=== PATIENT | female | born 1965 | race Caucasian/White ===

== ENCOUNTER → 2017-04-29 | Outpatient (CLI) | payer OTHER ==
--- NOTE | 2017-04-30 13:10 | MM ---
Reason for exam: screening (asymptomatic). Last mammogram was performed 1 year and 11 months ago. History: Patient is postmenopausal. Took hormonal contraceptives for 2 months. Physical Findings: A clinical breast exam by your physician is recommended on an annual basis and results should be correlated with mammographic findings. MG Screening Mammo w CAD Bilateral CC and MLO view(s) were taken. Prior study comparison: May 23, 2015, bilateral MG screening mammo w CAD. February 08, 2014, bilateral MG screening mammo w CAD. There are scattered fibroglandular densities. No suspicious abnormality. No significant changes when compared with prior studies. ASSESSMENT: Negative, BI-RAD 1 RECOMMENDATION: Routine screening mammogram of both breasts in 1 year.
== END | disposition home or self-care (01) ==
LOC: RADMAMWWP 10:20
PROVIDERS: ATTEND Family Medicine
DX: Z12.31 Encounter for screening mammogram for malignant neoplasm of breast (principal)

== ENCOUNTER → 2017-11-25 | Outpatient (CLI) | payer OTHER ==
--- NOTE | 2017-11-25 14:25 | XR ---
Lumbosacral spine HISTORY: Chronic low back pain 5 views of the lumbosacral spine correlated to prior exam 10/18/2013 There is no significant interval change. Some sclerosis present at the sacroiliac joint on the right. There is no spondylolysis or spondylolisthesis. Lumbar vertebral bodies show preserved height, stabl e bone mineralization. Loss of disc height is present at L5-S1, there is multilevel spondylosis. Scle rosis present posterior elements of the lower lumbar spine. Vascular calcifications noted in the aort oiliac region. IMPRESSION: Degenerative disc disease and facet arthropathy.
== END | disposition home or self-care (01) ==
LOC: RADXRYALE 11:17
PROVIDERS: ATTEND Physician Assistant Medical
DX: M51.37 Other intervertebral disc degeneration, lumbosacral region (principal); M46.97 Unspecified inflammatory spondylopathy, lumbosacral region
CPT/HCPCS: 72110

== ENCOUNTER → 2018-11-17 | Outpatient (CLI) | payer BC ==
[2018-11-17 10:53] VITALS: BP 115/66; PULSE 89; RESP 16; TEMP 97; BMI 35.8
--- NOTE | 2018-11-17 11:45 | P.HPOB ---
History of Present Illness H&P Date: 11/17/18 Chief Complaint: The patient is here for her routine gynecologic exam and ma mmogram. This is a 53-year-old with an LMP of 2004. The patient has been experiencing some vulvar pruritus for about one year. She saw resource management specialist about 1 month ago for a skin lesion on her back. The lesion on her back was biopsied. She was given a prescription for clobetasol ointment which she uses twice daily on the back and vulvar area. She is not sure what the biopsy showed up, but it was not cancerous. She states the ointment does seem to help somewhat, but the itching always seems to come back. She is otherwise without complaints and denies any postmenopausal bleeding. Review of Systems The patient has gained 5 pounds over the last year. She denies respiratory, cardiac, or G.I. problems. Past Medical History Past Medical History: Diabetes Mellitus, Hyperlipidemia, Hypertension Additional Past Medical History / Comment(s): Type II diabetes. 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 History of Any Multi-Drug Resistant Organisms: None Reported Past Surgical History: Tubal Ligation Additional Past Surgical History / Comment(s): SINUS SURGERY. VTPx3. Colonoscopy 2016(2nd,next 10yrs). Past Anesthesia/Blood Transfusion Reactions: Postoperative Nausea & Vomiting (PO NV) Past Psychological History: Depression Smoking Status: Former smoker (Quit 2005) Past Alcohol Use History: Rare Additional Past Alcohol Use History / Comment(s): QUIT SMOKING IN 2005, SMOKED FOR 23 YRS. 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 - Past Family History Mother Family Medical History: Diabetes Mellitus Additional Family Medical History / Comment(s): Grandfather also had diabetes. Brother(s) Family Medical History: Diabetes Mellitus Medications and Allergies Home Medications Medication Instructions Recorded Confirmed Type Atorvastatin [Lipitor] 20 mg PO HS 09/13/15 11/17/18 History Cholecalciferol [Vitamin D3] 1,000 unit PO DAILY 09/13/15 11/17/18 History DULoxetine HCL [Cymbalta] 60 mg PO HS 09/13/15 11/17/18 History Naproxen Sodium [Aleve] 220 mg PO Q4-6H PRN 09/13/15 11/17/18 History metFORMIN HCL 1,000 mg PO BID 09/13/15 11/17/18 History ARIPiprazole [Abilify] 2 mg PO DAILY 11/17/18 11/17/18 History Clobetasol Propionate [Temovate 1 applic TOPICAL DAILY 11/17/18 11/17/18 History 0.05% Cream] Empagliflozin [Jardiance] 10 mg PO DAILY 11/17/18 11/17/18 History Ibuprofen [Motrin] 800 mg PO DAILY 11/17/18 11/17/18 History Insulin Glargine [Lantus] 44 unit SQ HS 11/17/18 11/17/18 History Losartan Potassium [Cozaar] 25 mg PO DAILY 11/17/18 11/17/18 History Modafinil [Provigil] 100 mg PO QAM 11/17/18 11/17/18 History glipiZIDE [Glucotrol] 2.5 mg PO AC-BID 11/17/18 11/17/18 History Allergies Allergy/AdvReac Type Severity Reaction Status Date / Time bupropion HCl [From Zyban] Allergy Rash/Hives Verified 11/17/18 10:38 codeine Allergy Nausea & Verified 11/17/18 10:38 Vomiting tramadol HCl [From Ultram] Allergy Nausea & Verified 11/17/18 10:38 Vomiting Exam Vital Signs Temp Pulse Resp BP Pulse Ox 11/17/18 10:49 97.0 F L 89 16 115/66 96 Intake and Output 11/16/18 11/17/18 11/17/18 22:59 06:59 14:59 Other: Weight 88.904 kg Height 5'2", weight 196 pounds, BMI 35.8. This is a well-developed well-nourished heavyset white female who is alert and oriented times 3 in no acute distress. HEENT: Within normal limits. NECK: Supple without mass or thyromegaly. CHEST AND LUNGS: Clear to auscultation. HEART: Regular rate and rhythm. BREASTS: Are without mass or discharge. AXILLARY EXAM: Negative for adenopathy. BACK: Negative for CVA tenderness. The skin between the scapulae has a panel skin lesion that is flat measuring approximately 5 x 6 cm. The patient states that this was biopsied about a month ago by her resource management specialist. ABDOMEN: Soft, obese, nontender, without palpable masses. PELVIC EXAM: external genitalia reveals moderate atrophy with generalized mild pallor and erythema consistent with lichen sclerosis. The power and erythema is noted over the entire vulvar area bilaterally and extends to the perineum. There are no focal lesions. Cervix and vagina appear normal with mild to moderate atrophy. There is no unusual discharge. There is no evidence of prolapse. The uterus is midposition, nongravid size and nontender. There are no palpable adnexal masses or tenderness. RECTAL EXAM: rectovaginal exam is negative for mass or tenderness and is negative for occult blood. EXTREMITIES: Nontender. IMPRESSION: 1. 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 2. The patient was told that her back lesion is similar to the vulvar skin abnormality by her resource management specialist. The back lesion was apparently biopsied and found to be benign, but the patient does not know the exact diagnosis. PLAN: 1. Pap smear was performed. 2. Self breast awareness was discussed with the patient. 3. Screening mammogram will be done today. 4. Osteoporosis prevention was discussed. I have stressed the importance of adequate calcium, vitamin D and regular exercise. Recommended amounts of calcium and vitamin D were also discussed. 5. We had a long discussion regarding the lichen sclerosis changes of the vulva. She understands that this can be a very chronic condition. She will continue to use the clobetasol ointment BID as prescribed by her resource management specialist. If she is not having symptomatic improvement in one month, she was instructed to call for an appointment for a vulvar biopsy. 6. She will return in one year for her well woman exam and PRN.
--- NOTE | 2018-11-19 10:15 | MM ---
Reason for exam: screening (asymptomatic). Last mammogram was performed 1 year and 7 months ago. History: Patient is postmenopausal. Took hormonal contraceptives for 2 months. Physical Findings: A clinical breast exam by your physician is recommended on an annual basis and results should be correlated with mammographic findings. MG Screening Mammo w CAD Bilateral CC and MLO view(s) were taken. Prior study comparison: April 29, 2017, bilateral MG screening mammo w CAD. May 23, 2015, bilateral MG screening mammo w CAD. There are scattered fibroglandular densities. There is chronic nodularity in the right breast. No significant changes when compared with prior studies. ASSESSMENT: Negative, BI-RAD 1 RECOMMENDATION: Routine screening mammogram of both breasts in 1 year.
== END | disposition home or self-care (01) ==
LOC: WWCWWP 10:22
PROVIDERS: ATTEND Obstetrics & Gynecology
DX: Z12.31 Encounter for screening mammogram for malignant neoplasm of breast (principal)
CPT/HCPCS: 77067

== ENCOUNTER → 2020-03-06 | Outpatient (CLI) | payer BC ==
--- NOTE | 2020-03-06 12:34 | XR ---
EXAMINATION TYPE: XR thoracic spine complete DATE OF EXAM: 03/06/2020 COMPARISON: NONE HISTORY: Pain TECHNIQUE: 3 views submitted FINDINGS: Alignment is anatomic. There is no compression deformities. Vertebral body height and disc interspa devin are maintained. Curvature of the spine. Mild multilevel degenerative disc disease. There is prom inence of the upper mediastinum. IMPRESSION: 1. Mild multilevel degenerative disc disease. 2. Standard PA and lateral view of the chest recommended for slight prominence of the upper mediastin um..
== END | disposition home or self-care (01) ==
LOC: RADXRYALE 11:52
PROVIDERS: ATTEND Physician Assistant Medical
DX: M51.34 Other intervertebral disc degeneration, thoracic region (principal)
CPT/HCPCS: 72072

== ENCOUNTER → 2020-03-07 | Outpatient (CLI) | payer BC ==
--- NOTE | 2020-03-07 15:23 | XR ---
EXAMINATION TYPE: XR chest 2V DATE OF EXAM: 03/07/2020 COMPARISON: Thoracic spine 03/06/2020 TECHNIQUE: PA and lateral views submitted. HISTORY: Abnormal x-ray FINDINGS: The lungs are clear and there is no pneumothorax, pleural effusion, or focal pneumonia. Mediastinum within normal limits. No overt failure. IMPRESSION: 1. No acute process. Abnormality seen by thoracic spine likely positional and projectional.
== END | disposition home or self-care (01) ==
LOC: RADXRYALE 14:32
PROVIDERS: ATTEND Physician Assistant Medical
DX: R93.89 Abnormal findings on diagnostic imaging of other specified body structures (principal)
CPT/HCPCS: 71046

== ENCOUNTER → 2020-06-19 | Outpatient (CLI) | payer BC ==
--- NOTE | 2020-06-19 11:11 | US ---
EXAMINATION TYPE: US transvaginal DATE OF EXAM: 06/19/2020 COMPARISON: NONE CLINICAL HISTORY: 55-year-old female N95.0 Post menopausal bleeding. Intermittent post menopausal ble eding x 3 months TECHNIQUE: Transabdominal sonographic images of the pelvis were acquired. Transvaginal sonographic i mages were medically necessary to better assess the following anatomy: Uterus Date of LMP: post menopausal FINDINGS: EXAM MEASUREMENTS: Uterus: 5.7 x 2.6 x 3.8 cm Endometrial Stripe: 0.7 cm Right Ovary: 1.6 x 1.5 x 1.2 cm Left Ovary: Not seen 1. Uterus: Fibroid Rt UT 2.1 x 2.0 x 1.9 cm 2. Endometrium: 4 mm of fluid and debris seen within 3. Right Ovary: wnl 4. Left Ovary: Obscured by overlying bowel gas 5. Bilateral Adnexa: wnl 6. Posterior cul-de-sac: wnl IMPRESSION: Mildly thickened endometrial stripe at 7 mm. Abnormal in a postmenopausal female. There is some assoc iated fluid and debris within the uterine cavity. Possible vascular stalk which may be seen with endo metrial polyps. Additional differential considerations include endometrial hyperplasia and endometria l carcinoma. Further appropriate evaluation recommended.
== END | disposition home or self-care (01) ==
LOC: RADUSWWP 10:11
PROVIDERS: ATTEND Family Medicine
DX: N85.8 Other specified noninflammatory disorders of uterus (principal); R93.89 Abnormal findings on diagnostic imaging of other specified body structures; Z78.0 Asymptomatic menopausal state
CPT/HCPCS: 76830

== ENCOUNTER → 2020-06-19 | Outpatient (CLI) | payer BC ==
[2020-06-19 11:21] VITALS: BP 134/85; PULSE 92; RESP 18; TEMP 98.3
--- NOTE | 2020-06-19 12:23 | P.HPOB ---
History of Present Illness H&P Date: 06/19/20 Chief Complaint: The patient is here for her routine gynecologic exam. This is a 55-year-old with an LMP of 2004. The patient has noticed some light vaginal spotting during the past 2-3 months. She notices this most days and this has never been more than spotting. She denies any pelvic pain or cramping. She was recently treated for a bacterial vaginal infection by her PCP. She denies any unusual discharge or odor. She does experience vulvar pruritus and has been treated with clobetasol ointment for lichen sclerosis of the vulva. She states the clobetasol ointment is helpful for the lichen sclerosus symptoms. Review of Systems The patient's weight has been stable over the last year. She denies respiratory, cardiac, or G.I. problems. Past Medical History Past Medical History: Diabetes Mellitus, Hyperlipidemia, Hypertension Additional Past Medical History / Comment(s): Type II diabetes. 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 History of Any Multi-Drug Resistant Organisms: None Reported Past Surgical History: Tubal Ligation Additional Past Surgical History / Comment(s): SINUS SURGERY. VTPx3. Colonoscopy 2016(2nd,next 10yrs). Past Anesthesia/Blood Transfusion Reactions: Postoperative Nausea & Vomiting (PONV) Past Psychological History: Depression Smoking Status: Former smoker Past Alcohol Use History: Occasional (One every 2 weeks.) Additional Past Alcohol Use History / Comment(s): QUIT SMOKING IN 2005, SMOKED FOR 23 YRS. 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 - Past Family History Mother Family Medical History: Diabetes Mellitus Additional Family Medical History / Comment(s): Grandfather also had diabetes. Brother(s) Family Medical History: Diabetes Mellitus Medications and Allergies Home Medications Medication Instructions Recorded Confirmed Type Atorvastatin [Lipitor] 20 mg PO HS 09/13/15 06/19/20 History Cholecalciferol [Vitamin D3] 1,000 unit PO DAILY 09/13/15 06/19/20 History DULoxetine HCL [Cymbalta] 60 mg PO HS 09/13/15 06/19/20 History Naproxen Sodium [Aleve] 220 mg PO Q4-6H PRN 09/13/15 06/19/20 History metFORMIN HCL 1,000 mg PO BID 09/13/15 06/19/20 History ARIPiprazole [Abilify] 2 mg PO DAILY 11/17/18 06/19/20 History Clobetasol Propionate [Temovate 1 applic TOPICAL DAILY 11/17/18 06/19/20 History 0.05% Cream] Empagliflozin [Jardiance] 10 mg PO DAILY 11/17/18 06/19/20 History Insulin Glargine [Lantus] 44 unit SQ HS 11/17/18 06/19/20 History Losartan Potassium [Cozaar] 25 mg PO DAILY 11/17/18 06/19/20 History glipiZIDE [Glucotrol] 2.5 mg PO AC-BID 11/17/18 06/19/20 History modafiniL [Provigil] 100 mg PO QAM 11/17/18 06/19/20 History Meloxicam [Mobic] 7.5 mg PO DAILY 06/19/20 06/19/20 History Allergies Allergy/AdvReac Type Severity Reaction Status Date / Time bupropion HCl [From Zyban] Allergy Rash/Hives Verified 06/19/20 11:21 codeine Allergy Nausea & Verified 06/19/20 11:21 Vomiting tramadol HCl [From Ultram] Allergy Nausea & Verified 06/19/20 11:21 Vomiting Exam Vital Signs Temp Pulse Resp BP Pulse Ox 06/19/20 11:19 98.3 F 92 18 134/85 98 Intake and Output 06/18/20 06/19/20 06/19/20 22:59 06:59 14:59 Other: Weight 89.811 kg Height 5 feet 3 inches, weight 198 pounds, BMI 35.1. This is a well-developed well-nourished heavyset white white female who is alert and oriented times 3 in no acute distress. HEENT: Within normal limits. NECK: Supple without mass or thyromegaly. CHEST AND LUNGS: Clear to auscultation. HEART: Regular rate and rhythm. BREASTS: Are without mass or discharge. AXILLARY EXAM: Negative for adenopathy. BACK: Negative for CVA tenderness. ABDOMEN: Soft, obese, nontender, without palpable masses. PELVIC EXAM: External genitalia reveals mild generalized pallor with mild inflammation and mild atrophy. The inflammation and extends to the perineum and perianal areas. Cervix and vagina appear normal with no evidence of blood initially on exam. There is a small to moderate amount of creamy off-white color discharge without apparent odor. There is no evidence of prolapse. The uterus is midposition, nongravid size and nontender. There are no palpable adnexal masses or tenderness. RECTAL EXAM: Rectovaginal exam is negative for mass or tenderness and is negative for occult blood. EXTREMITIES: Nontender. Additional studies: Pelvic ultrasound was done today and shows an endometrial thickness of 7 mm which is slightly thickened. There is also some fluid and debris within the cavity of the uterus. There is evidence of a vascular stalk possibly suggestive of an endometrial polyp. IMPRESSION: 1. 55-year-old menopausal female with light postmenopausal spotting for approximately 2-3 months. Slightly thickened endometrium by ultrasound today. 2. Probable lichen sclerosus of the vulva and also involves the perineum and perianal areas. This is symptomatically improved with clobetasol ointment. 3. Vaginal discharge. Differential diagnosis will include physiologic discharge, Ioana vaginitis, bacterial vaginosis, trichomonas, and less likely, gonorrhea or chlamydia. PLAN: 1. Pap smear was performed. 2. Self breast awareness was discussed with the patient. 3. Screening mammogram is due and the order slip was given to the patient for this. 4. Affirm testing was obtained from the vaginal discharge which will check for ioana, Gardnerella, and Trichomonas. 5. GC and Chlamydia testing was obtained from the cervix. 6. The patient will be scheduled for an endometrial biopsy. She understands that even if benign, she may be referred if she continues to have recurrent vaginal bleeding. 7. Follow-up will be as above and in one year for her well woman examination as well as when necessary.
--- NOTE | 2020-06-22 10:13 | P.PN ---
Progress Note - Text Progress Note Date: 06/22/20 Test results from 06/19/20 include Affirm testing positive for Gardnerella and negative for Ioana and Trichomonas. GC and Chlamydia testing were also negative. She states she was treated for a bacterial infection by her PCP with amoxicillin. Imp: Bacterial vaginosis Plan: Metronidazole 500mg PO BIDx 7d. The electronic prescription was sent to [facility] in [place]. She has an endometrial biopsy appointment on 06/27/20.
== END | disposition home or self-care (01) ==
LOC: WWCWWP 10:18
PROVIDERS: ATTEND Obstetrics & Gynecology
DX: Z53.9 Procedure and treatment not carried out, unspecified reason (principal)

== ENCOUNTER → 2020-06-27 | Day surgery (SDC) | payer BC ==
[2020-06-27 12:09] VITALS: BP 119/78; PULSE 95; RESP 18; TEMP 97.7
--- NOTE | 2020-06-27 13:14 | P.PCN ---
Date of Procedure: 06/27/20 Preoperative Diagnosis: Light postmenopausal bleeding Postoperative Diagnosis: Light postmenopausal bleeding Procedure(s) Performed: Endometrial biopsy Anesthesia: none Surgeon: Luís Colbert Estimated Blood Loss (ml): 0 Pathology: other (Endometrial tissue) Condition: stable Disposition: same day Indications for Procedure: This was a 55-year-old menopausal female who has had some intermittent light vaginal spotting over the past 2-3 months. Pelvic ultrasound was done which sh owed the endometrium to be mildly thickened at 7 mm. Operative Findings: The cervix appears grossly normal. The uterus sounded to 7.5 cm. Small amount of tissue was obtained from the endometrial cavity. Description of Procedure: We have discussed the reason for doing an endometrial biopsy as well as the procedure itself. We'll have also discussed possible risks including bleeding,infection, and possible pain from the procedure. All of her questions were answered. Preprocedure: blood pressure 119/78, height 64 inches, weight 196 pounds, temp 97.7, pulse 95, pulse oximeter 98%. The patient was placed in the lithotomy position. Bimanual examination revealed a mid position nongravid size uterus. There are no palpable adnexal masses or tenderness. A speculum was inserted into the vagina. The cervix and vagina were prepped with Betadine solution. The anterior lip of the cervix was grasped with an Allis clamp. The 3 mm endometrial biopsy instrument was placed to the fundus without difficulty. The uterus measured 7.5 cm. Negative pressure was applied and using a [id number] rotating motion, a small amount of tissue was obtained. The procedure was repeated to get additional tissue. Again, small tissue was obtained. The tissue was sent for pathological examination. The instruments were removed. The patient tolerated the procedure well. There was no active bleeding. The estimated blood loss for the procedure was 0 mL. Post procedure: Blood pressure 124/83, pulse 93, pulse oximeter 98%. The patient was instructed to call if she is having unusual pain, heavy bleeding, fever, or problems. She can use [id number] ibuprofen as directed as needed. She was discharged home in stable condition.
--- NOTE | 2020-07-03 09:15 | P.PN ---
Progress Note - Text Progress Note Date: 07/03/20 OUTPATIENT FOLLOW-UP NOTE TEST(S)/RESULTS: Endometrial biopsy done on 06/27/2020 showed small atrophic endometrium. Pap smear done on 06/19/2020 was negative. A comment was made that there was a shift in the vaginal daniel suggestive of bacterial vaginosis. METHOD OF NOTIFICATION: She was notified by phone. PATIENT COMMENTS: The patient has completed the prescription for metronidazole which was given to her after affirm testing was positive for Gardnerella. She has had a small amount of spotting after the endometrial biopsy. DIAGNOSIS: Benign endometrial biopsy done for small postmenopausal bleeding, negative Pap smear and findings of bacterial vaginosis on Pap smear which was treated already. DISCUSSION: We have discussed how it will be important for her to notify me if she has persistent vaginal spotting or bleeding. If this is the case, I will recommend further evaluation with hysteroscopy and D&C. She understands this and she states she will call if she has persistent spotting or bleeding. PLAN: As above. She was advised to return in one year for her annual well woman exam and as needed.
== END ==
LOC: WWCWWP 11:53
PROVIDERS: ATTEND Obstetrics & Gynecology
DX: N85.8 Other specified noninflammatory disorders of uterus (principal); N95.0 Postmenopausal bleeding; E11.9 Type 2 diabetes mellitus without complications; E78.5 Hyperlipidemia, unspecified; I10 Essential (primary) hypertension; Z98.51 Tubal ligation status; Z98.890 Other specified postprocedural states; F32.9 Major depressive disorder, single episode, unspecified; Z87.891 Personal history of nicotine dependence; Z83.3 Family history of diabetes mellitus; Z79.1 Long term (current) use of non-steroidal anti-inflammatories (NSAID); Z79.4 Long term (current) use of insulin; Z79.899 Other long term (current) drug therapy; Z88.5 Allergy status to narcotic agent; Z88.8 Allergy status to other drugs, medicaments and biological substances
CPT/HCPCS: 88305

== ENCOUNTER → 2020-08-14 | Outpatient (CLI) | payer BC ==
--- NOTE | 2020-08-14 10:51 | MR ---
EXAMINATION TYPE: MR thoracic spine wo con DATE OF EXAM: 08/14/2020 COMPARISON: None HISTORY: Mid back pain x 8 mos, no trauma/surgery Standard multiplanar, multisequence MRI departmental protocol Multiplanar, multisequence images of the spine were acquired. FINDINGS: Alignment is anatomic. Vertebral body height and disc interspace maintained. No compression deformiti es. Multiple small vertebral body hemangiomas. No spinal cord is of normal course and caliber. No abnormal signal seen in the visualized spinal cord . Neural foramina appear to be patent at all levels. At T5-T6 there is very minimal central disc bulging but no discrete herniation. Remaining levels demo nstrate no evidence of disc herniation or canal stenosis. No foraminal encroachment. Nonspecific nodularity involving the right adrenal gland. Mild disc desiccation T5-T6. IMPRESSION: 1. Mild degenerative disc disease T5-T6. There is mild disc bulging but no evidence of disc herniatio n or canal stenosis. 2. Incidental note is made of a uncovertebral joint hypertrophy and sagittal disc bulge in the lower cervical spine.
== END | disposition home or self-care (01) ==
LOC: RADMRIMAIN 09:42
PROVIDERS: ATTEND Physician Assistant Medical
DX: M51.34 Other intervertebral disc degeneration, thoracic region (principal)
CPT/HCPCS: 72146

== ENCOUNTER → 2020-09-11 | Outpatient (CLI) | payer BC ==
--- NOTE | 2020-09-12 13:12 | MM ---
Reason for exam: screening (asymptomatic). Last mammogram was performed 1 year and 10 months ago. History: Patient is postmenopausal. Took hormonal contraceptives for 2 months. Physical Findings: A clinical breast exam by your physician is recommended on an annual basis and results should be correlated with mammographic findings. MG Screening Mammo w CAD Bilateral CC and MLO view(s) were taken. Prior study comparison: November 17, 2018, bilateral MG screening mammo w CAD. April 29, 2017, bilateral MG screening mammo w CAD. There are scattered fibroglandular densities. There is no discrete abnormality. ASSESSMENT: Negative, BI-RAD 1 RECOMMENDATION: Routine screening mammogram of both breasts in 1 year.
== END | disposition home or self-care (01) ==
LOC: RADMAMWWP 11:14
PROVIDERS: ATTEND Obstetrics & Gynecology
DX: Z12.31 Encounter for screening mammogram for malignant neoplasm of breast (principal)
CPT/HCPCS: 77067

== ENCOUNTER → 2020-10-04 | Outpatient (CLI) | payer BC ==
[2020-10-04 10:44] LABS: African American GFR (CKD) >90 (>60 ml/min/1.73 sqM); Blood Urea Nitrogen 17 mg/dL (7-17); Non-African American GFR(CKD) 86 (>60 ml/min/1.73 sqM)
--- NOTE | 2020-10-04 11:54 | CT ---
EXAMINATION TYPE: CT adrenal glands wo/w con DATE OF EXAM: 10/04/2020 HISTORY: Benign neoplasm of unspecified adrenal gland CT DLP: 1639.5mGycm Automated Exposure Control for Dose Reduction was Utilized. CONTRAST: CT scan of the abdomen and is performed without oral and without and with IV Contrast, patient inject ed with 100 mL of Isovue 300. Adrenal gland protocol. COMPARISON: CT abdomen May 10, 2014 FINDINGS: LUNG BASES: No significant abnormality is appreciated. LIVER/GB: Visualized liver remains hypodense on noncontrast images consistent with diffuse fatty infi ltration. Suspect small dependent gallstone image 30 series 7. PANCREAS: No significant abnormality is seen. SPLEEN: No significant abnormality is seen. ADRENALS: There is 1.7 x 1.1 cm right adrenal mass redemonstrated stable from prior CT. Noncontrast i mages show Hounsfield units averaging 3. 1 minute postcontrast images show Hounsfield units averaging 50. 15 minute delayed images show Hounsfield units averaging 17. All findings are consistent with be nign lipid rich adenoma including stability. There is a anterior left adrenal mass measuring 1.9 x 1.1 cm stable from prior. Hounsfield units aver age of -1 noncontrast images. There is enhancement of 53 Hounsfield units on 1 minute postcontrast im ages. There is washout to 13 Hounsfield units on 15 minute delayed images. All findings are consisten t with benign lipid rich adenoma including stability in size. KIDNEYS: No renal calculi on noncontrast images. There is symmetric cortical medullary uptake and exc retion without hydronephrosis seen bilaterally. There is 9 mm subcentimeter low dense lesion anterior ly lower pole right kidney consistent with benign simple cyst. BOWEL: Stomach is poorly distended and suboptimally evaluated. No suspicious small or large bowel dil atation. LYMPH NODES: No greater than 1cm abdominal lymph nodes are appreciated. OSSEOUS STRUCTURES: No significant abnormality is seen. OTHER: Hcit-be-gymswpnb calcified plaque aorta extends into branch vessels. 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
== END | disposition home or self-care (01) ==
LOC: RADCTMAIN 10:03
PROVIDERS: ATTEND Internal Medicine Endocrinology, Diabetes & Metabolism
DX: D35.02 Benign neoplasm of left adrenal gland (principal); D35.01 Benign neoplasm of right adrenal gland; E11.65 Type 2 diabetes mellitus with hyperglycemia
CPT/HCPCS: 82565; 84520; 36415; 74170; Q9967

== ENCOUNTER → 2021-09-04 | Outpatient (CLI) | payer BC ==
--- NOTE | 2021-09-04 12:41 | XR ---
Lumbosacral spine HISTORY: Back pain, degenerative disc disease 5 views lumbosacral spine correlated to prior lumbosacral spine dated 11/25/2017, 10/18/2013 Lumbar vertebral bodies show stable height, alignment, bone mineralization. There is multilevel spond ylosis, minimal retrolisthesis grade 1 L4-5. Some mild loss of disc height suspected L5-S1. Sclerosis is present in the posterior elements of the lower lumbar spine. Spinal curvature could be positional . Sclerosis at the sacroiliac joint on the right shows a similar appearance. No acute fracture or sub luxation. No evident spondylolysis. IMPRESSION: Degenerative disc disease and facet arthropathy are similar to prior exams.
== END | disposition home or self-care (01) ==
LOC: RADXRYALE 09:29
PROVIDERS: ATTEND Physician Assistant Medical
DX: M51.36 Other intervertebral disc degeneration, lumbar region (principal); M47.816 Spondylosis without myelopathy or radiculopathy, lumbar region
CPT/HCPCS: 72110

== ENCOUNTER → 2021-10-29 | Outpatient (CLI) | payer BC ==
[2021-10-29 11:25] VITALS: BP 153/83; PULSE 97; RESP 18; TEMP 98.1
--- NOTE | 2021-10-29 12:17 | P.HPOB ---
History of Present Illness H&P Date: 10/29/21 Chief Complaint: The patient is here for her routine gynecologic exam and ma mmogram. This is a 56-year-old 032 with an LMP of 2004. The patient states she has done well with clobetasol ointment which has been used for lichen sclerosus of the vulva. She uses the ointment infrequently as needed and this has controlled her symptoms. She is without gynecologic complaints and denies any post menopausal bleeding. Review of Systems The patient has lost 8 pounds over the last year. She denies respiratory, cardiac, or G.I. problems. Past Medical History Past Medical History: Diabetes Mellitus, Hyperlipidemia, Hypertension Additional Past Medical History / Comment(s): Type II diabetes. 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 Lichen sclerosus of the vulva. History of Any Multi-Drug Resistant Organisms: None Reported Past Surgical History: Tubal Ligation Additional Past Surgical History / Comment(s): SINUS SURGERY. VTPx3. Colonoscopy 2016(2nd,next 10yrs). Past Anesthesia/Blood Transfusion Reactions: Postoperative Nausea & Vomiting (PONV) Past Psychological History: Depression Smoking Status: Former smoker Past Alcohol Use History: Occasional (0-3 per week) Additional Past Alcohol Use History / Comment(s): QUIT SMOKING IN 2005, SMOKED FOR 23 YRS. 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 - Past Family History Mother Family Medical History: Diabetes Mellitus Additional Family Medical History / Comment(s): Grandfather also had diabetes. Brother(s) Family Medical History: Diabetes Mellitus Medications and Allergies Home Medications Medication Instructions Recorded Confirmed Type Atorvastatin [Lipitor] 20 mg PO HS 09/13/15 10/29/21 History Cholecalciferol [Vitamin D3] 1,000 unit PO DAILY 09/13/15 10/29/21 History DULoxetine HCL [Cymbalta] 60 mg PO HS 09/13/15 10/29/21 History Naproxen Sodium [Aleve] 220 mg PO Q4-6H PRN 09/13/15 10/29/21 History metFORMIN HCL [Glucophage] 1,000 mg PO BID 09/13/15 10/29/21 History ARIPiprazole [Abilify] 2 mg PO DAILY 11/17/18 10/29/21 History Clobetasol Propionate [Temovate 1 applic TOPICAL DAILY 11/17/18 10/29/21 History 0.05% Cream] Empagliflozin [Jardiance] 10 mg PO DAILY 11/17/18 10/29/21 History Insulin Glargine [Lantus] 44 unit SQ HS 11/17/18 10/29/21 History Losartan Potassium [Cozaar] 25 mg PO DAILY 11/17/18 10/29/21 History glipiZIDE [Glucotrol] 2.5 mg PO AC-BID 11/17/18 10/29/21 History modafiniL [Provigil] 100 mg PO QAM 11/17/18 10/29/21 History Meloxicam [Mobic] 7.5 mg PO DAILY 06/19/20 10/29/21 History metroNIDAZOLE [Flagyl] 500 mg PO BID 7 Days #14 tab 06/22/20 10/29/21 Rx Allergies Allergy/AdvReac Type Severity Reaction Status Date / Time bupropion HCl [From Zyban] Allergy Rash/Hives Verified 10/29/21 11:11 codeine Allergy Nausea & Verified 10/29/21 11:11 Vomiting tramadol HCl [From Ultram] Allergy Nausea & Verified 10/29/21 11:11 Vomiting Exam Vital Signs Temp Pulse Resp BP Pulse Ox 10/29/21 11:13 98.1 F 97 18 153/83 97 Intake and Output 10/28/21 10/29/21 10/29/21 22:59 06:59 14:59 Other: Weight 86.183 kg Height 5 feet 3 inches, weight 190 pounds, BMI 33.7. This is a well-developed well-nourished white female who is alert and oriented times 3 in no acute distress. HEENT: Within normal limits. NECK: Supple without mass or thyromegaly. CHEST AND LUNGS: Clear to auscultation. HEART: Regular rate and rhythm. BREASTS: Are without mass or discharge. AXILLARY EXAM: Negative for adenopathy. BACK: Negative for CVA tenderness. ABDOMEN: Soft, nontender, without palpable masses. PELVIC EXAM: External genitalia reveals mild to moderate atrophy with generalized pallor consistent with lichen sclerosus. There are no focal lesions. Cervix and vagina appear normal with mild atrophy. There is no unusual discharge. There is no evidence of prolapse. The uterus is midposition, nongravid size and nontender. There are no palpable adnexal masses or tenderness. RECTAL EXAM: Rectovaginal exam is negative for mass or tenderness and is negative for occult blood. EXTREMITIES: Nontender. IMPRESSION: 1. 56-year-old menopausal female with stable lichen sclerosus of the vulva controlled with clobetasol ointment. PLAN: 1. Pap smear was deferred since she had a negative one on 06/19/2020. 2. Self breast awareness was discussed with the patient. We have also discussed symptoms associated with inflammatory breast cancer. 3. Screening mammogram was done today. 4. Continue clobetasol ointment as needed for vulvar itching. The patient states she does not need a refill on this at this time. She will call if she does. 5. She has received her Pfizer Covid vaccination series. She has not received a booster. I have recommended that she receive a booster especially with her history of diabetes. 6. She was advised to return in one year for her annual well woman exam and as needed.
--- NOTE | 2021-10-30 09:24 | MM ---
Reason for exam: screening (asymptomatic). Last mammogram was performed 1 year and 2 months ago. History: Patient is postmenopausal. Took hormonal contraceptives for 2 months. Physical Findings: A clinical breast exam by your physician is recommended on an annual basis and results should be correlated with mammographic findings. MG Screening Mammo w CAD Bilateral CC and MLO view(s) were taken. Prior study comparison: September 11, 2020, bilateral MG screening mammo w CAD. November 17, 2018, bilateral MG screening mammo w CAD. There are scattered fibroglandular densities. There is no discrete abnormality. No significant changes when compared with prior studies. ASSESSMENT: Negative, BI-RAD 1 RECOMMENDATION: Routine screening mammogram of both breasts in 1 year.
== END | disposition home or self-care (01) ==
LOC: RADMAMWWP 10:46
PROVIDERS: ATTEND Obstetrics & Gynecology
DX: Z12.31 Encounter for screening mammogram for malignant neoplasm of breast (principal)
CPT/HCPCS: 77067

== ENCOUNTER → 2022-01-06 | Outpatient (CLI) | payer BC ==
--- NOTE | 2022-01-06 09:31 | P.CON ---
Consult Note - . Consult date: 01/06/22 Assessment/Plan:: HISTORY OF PRESENT ILLNESS: 56 yr old female as a referral from Dr. Choi presents today with chronic & severe LBP secondary to retrolisthesis and DDD for evaluation. She states her lower back pain has been going on for years, 3 out of 10 in intensity, localized in the center lower aspect of her lumbar spine, sharp, achy, and needle sensation with radiation of pain to the right hip and right lower extremity. Pain is exacerbated with bending, sitting or twisting. Pain is relieved with medications (Aleve/,), topical pain medications which she infrequently uses, ice, heat, laying supine and rest. Past Medical History: Diabetes Mellitus Type II, Hyperlipidemia, Hypertension, MDD Past Surgical History: Tubal Ligation, Sinus Surgery, VTP x 3, Colonoscopy (2016) Social History: 23 pack/ yr tobacco user/ Quit in 2005, Occasional ETOH use, no illicit drug use. since 1991 and works for an [employer]. Family History: Mother- Diabetes Mellitus. MGF- Diabetes Mellitus. Brother- Diabetes Mellitus All: See list Meds: See list REVIEW OF ORGAN SYSTEMS: CONSTITUTIONAL: No fevers or chills. No recent weight loss. HEENT: No visual acuity loss, eye pain, difficulties with hearing. No nosebleeds. No difficulty swallowing. RESPIRATORY: Denies any troubles with breathing or dyspnea on exertion. CARDIOVASCULAR: Denies any chest pain, palpitations, or recent heart attacks. GASTROINTESTINAL: Denies fatty food intolerance. Has change in bowel habits and gas bloat. GENITOURINARY: Denies any blood in urine. Has increased urinary frequency. NEUROLOGICAL: + numbness and tingling along the distal extremities. No seizure disorders or headaches. MUSCULOSKELETAL: + back pain SKIN: No skin cancer. No rash. PSYCHIATRIC: Denies current depression or suicidal thoughts. ENDOCRINE: Denies current thyroid disorders. Denies any blood sugar glucose intolerance. HEME/LYMPHATIC: Denies any lumps and bumps around the neck. History of deep venous thrombosis. ALLERGY/IMMUNOLOGY: No immunoglobulin therapy. No immune deficiencies. BREAST: Denies current breast lumps, pain or nipple discharge. Physical Examinations : Constitutional : Cooperative , not in acute distress . HEENT: Neck supple. No Lymphadenopathy. Normal thyroid size . Eyes no ptosis , no icterus, no photophobia . Hearing intact. Normal oropharynx. No Thrush. Respiratory : Chest clear to auscultations bilaterally. No wheezing. No rhonchi. Cardiovascular : Regular rate and rhythm , S1 / S2. No S3 . No S4. Gastrointestinal : Abdomen soft. No tenderness. Bowel sounds x 4. No organomegaly . Genitourinary : Deferred. Neurologic : Cranial nerve II to XII intact. No focal neurological deficits. Psychiatric : alert & oriented x 3. Matching mood & appropriate affect. Judgment & insight intact. Lymphatic No Lymphadenopathy. Musculoskeletal : Cervical Spine Motor strength in the deltoid and biceps: Normal right side. Normal Left side Motor strength biceps and the wrist extensors: Normal right side . Normal left side Motor strength in the triceps muscle: Normal right side. Normal left side Deep tendon reflexes: Normal at the biceps. Normal at Brachioradialis. Normal at triceps Cervical facet loading test: positive bilaterally Spurling test: positive bilaterally Neck distraction test: positive bilaterally Marco sign: positive bilaterally Lumbar spine Motor strength lower extremities ,thigh and legs 5/5 Right side , 5/5 Left side Deep tendon reflexes : Normal Knee Jerk. Normal Ankle Jerk Vertebral body tenderness over L5 Lumbar facet Loading Test: positive Right / positive Left Range of motion of the lumbar spine Flexion 30 degrees, extension 10 degrees Straight Leg Raise test: Left/ Right positive at degree Junaid test: positive right / positive left. Severe tenderness over the Sacroiliac joint on the Right / Left sides Gaenslen test: positive bilaterally Seated flexion test: positive bilaterally. Imaging: MRI of the Lumbar spine without contrast from 09/04/21 reviewed. Assessment/ Plan : Recommendation of LESI L5-S1 31. Risks, benefits of procedure discussed and patient verbalized understanding. Denies aspirin or anti- coagulant use. Admits to medical history of diabetes. Protocol for discontinuation/ continuation of medications toñito procedure discussed. MRI Thoracic spine re: M47.814 All questions answered. I have spent greater than 50 minutes on patient care today. Dr Francis was available by phone for the evaluation of this patient. The time was used to review the medical records including relevant urine studies and Prescription history (MAPs), review of the available imaging, evaluation and examination of the patient, coordination of care with the medical staff and if applicable referring physicians, as well as creation of the medical record PQRS Measure Charge Sheet PQRS Narrative: Smoking Status Former smoker Home Medications: Ambulatory Orders Atorvastatin [Lipitor] 20 mg PO HS 09/13/15 Cholecalciferol [Vitamin D3] 1,000 unit PO DAILY 09/13/15 DULoxetine HCL [Cymbalta] 60 mg PO HS 09/13/15 Naproxen Sodium [Aleve] 220 mg PO Q4-6H PRN 09/13/15 metFORMIN HCL [Glucophage] 1,000 mg PO BID 09/13/15 ARIPiprazole [Abilify] 2 mg PO DAILY 11/17/18 Clobetasol Propionate [Temovate 0.05% Cream] 1 applic TOPICAL DAILY 11/17/18 Empagliflozin [Jardiance] 10 mg PO DAILY 11/17/18 Insulin Glargine [Lantus] 44 unit SQ HS 11/17/18 Losartan Potassium [Cozaar] 25 mg PO DAILY 11/17/18 glipiZIDE [Glucotrol] 2.5 mg PO AC-BID 11/17/18 modafiniL [Provigil] 100 mg PO QAM 11/17/18 Meloxicam [Mobic] 7.5 mg PO DAILY 06/19/20 metroNIDAZOLE [Flagyl] 500 mg PO BID 7 Days #14 tab 06/22/20
[2022-01-06 09:37] VITALS: BP 140/88; PULSE 100; RESP 18; TEMP 98.1
== END ==
LOC: PNWHC3 08:42
PROVIDERS: ATTEND Specialist
DX: M51.36 Other intervertebral disc degeneration, lumbar region (principal); M43.16 Spondylolisthesis, lumbar region; G89.29 Other chronic pain; E11.9 Type 2 diabetes mellitus without complications; E78.5 Hyperlipidemia, unspecified; I10 Essential (primary) hypertension; Z87.891 Personal history of nicotine dependence; Z79.4 Long term (current) use of insulin; Z79.84 Long term (current) use of oral hypoglycemic drugs; Z88.5 Allergy status to narcotic agent
CPT/HCPCS: 99211

== ENCOUNTER → 2022-01-31 | Outpatient (CLI) | payer BC ==
--- NOTE | 2022-01-31 12:49 | MR ---
Thoracic spine MRI HISTORY: M47.814 SPONDYLOSIS W/O MYELOPATHY OR RADICULOPATH Multiplanar multisequence imaging through the thoracic spine, correlation prior exam 08/14/2020 Thoracic vertebral bodies show preserved height, alignment, there is mild spinal curvature. There is no evident foraminal encroachment or spinal stenosis. Multilevel spondylosis is present with some min imal endplate discogenic marrow signal change similar to prior exam. Disc spaces are stable. T4 shows probable hemangioma, smaller hemangioma suspected within the T8 and T8-9 vertebral bodies are also s table. There is multilevel facet arthropathy change. No sizable disc herniation. Minimal posterior di sc herniation is present at T8-9, axial image 14 series 601. Thoracic cord signal is normal. impression: Mild degenerative disease similar to prior exam.
== END | disposition home or self-care (01) ==
LOC: RADMRIMAIN 09:42
PROVIDERS: ATTEND Physician Assistant Medical
DX: M47.814 Spondylosis without myelopathy or radiculopathy, thoracic region (principal)
CPT/HCPCS: 72146

== ENCOUNTER 2022-02-13 09:58 | Day surgery (SDC) | payer BC ==
[2022-02-12 11:53] VITALS: BMI 34.5
[2022-02-13] MEDS ORDERED: LIDOCAINE 1% (10MG/ML) FOR IV START INTRADERMA PRN (10:18)
[2022-02-13 10:30] VITALS: TEMP 97.4
[2022-02-13] MEDS: LACTATED RINGERS 1,000 ML IV SCH ×2 (10:31→10:33)
[2022-02-13 10:32] LABS: Glucose,Whole Blood 130 mg/dL (70-110)
[2022-02-13] MEDS ORDERED: IOPAMIDOL M200 10 ML VIAL ONE (10:35)
[2022-02-13] MEDS ORDERED: methylPREDNISolone ACETATE 40 MG/ML 1 ML VIAL ONE (10:35)
[2022-02-13] MEDS ORDERED: MIDAZOLAM 2 MG/2 ML VIAL ONE (10:35)
[2022-02-13] MEDS ORDERED: fentaNYL (PF) 50 MCG/ML 2 ML AMP ONE (10:35)
--- NOTE | 2022-02-13 10:46 | P.PCN ---
Date of Procedure: 02/13/22 Procedure(s) Performed: PREOPERATIVE DIAGNOSIS: 1- Lumbar Degenerative Disc Diseases 2-Lumbar spondylosis with Facet arthropathy without myelopathy POSTOPERATIVE DIAGNOSIS: Same as preop diagnosis. PROCEDURE 1. Lumbar epidural steroid injection under fluoroscopic guidance at the L5-S1 level. (Fluoroscopy imaging was available in radiology department) 2. Lumbar epidurogram. ANESTHESIA: Local with 1% lidocaine 3 ml and , moderate sedation with intravenous Versed 2 mg ,and fentanyle 100 Mcg EBL: Minimal PROCEDURE INDICATION: The patient with low back pain and radiculitis symptoms unresponsive to conservative treatment. Fluoroscopy was used to optimize visuali zation of the needle placement and to maximize safety. PROCEDURE DESCRIPTION / TECHNIQUE: The patient was seen and identified in the preoperative area. Risks, benefits, complications including but not limited to infections ,bleeding ,allergic reaction to the medications ,nerve damage and not complete pain releife , and alternatives were discussed with the patient. The patient agreed to proceed with the procedure and signed the consent. IV was started, and vital signs were stable. Patient was taken to the OR and time out was completed. The patient was placed in the prone position on procedure table and a pillow was placed under the abdomen to reduce lumbar lordosis. The lumbosacral area was prepped and draped in the usual sterile fashion.ere closely monitored during the procedure. Conscious sedation was used during the procedure to decrease patients anxiety. Vital signs was monitered during the entire procedure. Using anterior-posterior fluoroscopy, the L5-S1 interlaminar space was identified and the skin over this site was marked and then infiltrated with 1% lidocaine subcutaneously. Subsequently, a 20-gauge Tuohy epidural needle was inserted and advanced toward the epidural space using the ``Loss of resistance technique and guided by AP and lateral fluoroscopy. The correct needle position in the epidural space was verified with the injection of 2 mL of the water juni uble contrast dye Isovue 200 contrast and observing an excellent epidurogram with the epidural spread of the dye, after negative aspiration for blood and CSF and in the absence of paresthesias. Again after negative aspiration, a 6 ml mixture containing 40 mg of Depo-medrol , and 2 ml of preservative free Normal Saline, and 2 ml of preservative free lidocaine 1% solution was injected and a washout of epidurogram was seen. Needle was withdrawn intact, skin was cleansed, and bandages were applied. COMPLICATIONS: None DISPOSITION / PLANS: The patient was placed in a supine position and transferred to the recovery area in a stable condition for observation. There was no evidence of lower extremity motor or sensory deficit after the procedure. Patient was discharged from the recovery room after meeting discharge criteria. Home discharge instructions were given to the patient by the staff. The patient was reexamined prior to discharge. The patient will schedule a follow up in the clinic in 2-4 weeks.
[2022-02-13] MEDS ORDERED: IV FLUID CONTINUATION 800 ML IV ONE (10:56)
[2022-02-13 11:12] VITALS: BP 140/63; PULSE 101; RESP 18
--- NOTE | 2022-02-13 13:53 | FL ---
Fluoroscopy HISTORY: Pain 4 seconds fluoroscopy time supplied to the referring clinician. 1 intraoperative C-arm images docume nt the procedure. See dictated report from anesthesia.
== END 2022-02-13 11:20 | disposition home or self-care (01) ==
LOC: ORPAIN 09:58
PROVIDERS: ATTEND Specialist
DX: M51.16 Intervertebral disc disorders with radiculopathy, lumbar region (principal); M47.26 Other spondylosis with radiculopathy, lumbar region
CPT/HCPCS: 62323; J2250; J1030; J3010; Q9966

== ENCOUNTER 2022-09-12 12:28 | Day surgery (SDC) | payer BC ==
[2022-09-10 08:56] VITALS: BMI 34.2
[2022-09-12] MEDS ORDERED: LACTATED RINGERS 1,000 ML IV SCH (12:39)
[2022-09-12] MEDS ORDERED: MIDAZOLAM 2 MG/2 ML VIAL IV PRN (12:39)
[2022-09-12] MEDS ORDERED: DEXAMETHASONE SOD PHOSPHATE 4 MG/ML 1 ML VIAL IV ONE (12:39)
[2022-09-12] MEDS ORDERED: fentaNYL (PF) 50 MCG/ML 2 ML AMP IV PRN (12:39)
[2022-09-12] MEDS ORDERED: SCOPOLAMINE 1 MG/72 HR PATCH TRANSDERM ONE (12:39)
[2022-09-12] MEDS ORDERED: ONDANSETRON 4 MG/2 ML VIAL IVP ONE (12:39)
[2022-09-12] MEDS ORDERED: DEXAMETHASONE SOD PHOSPHATE 4 MG/ML 1 ML VIAL IVP ONE (13:35)
[2022-09-12] MEDS ORDERED: LACTATED RINGERS 1,000 ML IV ONE ×4 (13:35→15:37)
[2022-09-12 13:36] LABS: Glucose,Whole Blood 146 mg/dL (70-110)
[2022-09-12] MEDS ORDERED: MIDAZOLAM 2 MG/2 ML VIAL IVP ONE (13:37)
--- NOTE | 2022-09-12 13:58 | P.ANPRN ---
Procedure Note - Anesthesia - Nerve Block Performed Left Popliteal Single Time Out Performed: Yes Date of Procedure: 09/12/22 Procedure Start Time: 13:36 Procedure Stop Time: 13:45 Location of Patient: PreOp Indication: Requested by Surgeon Specifically requested for management of pain by DrCathleen: Obed Sanches Sedation Type: Sedate with meaningful contact maintained Preparation: Sterile Prep Position: Right Lateral Needle Types: Pajunk Needle Gauge: 21 Ultrasound used to visualize needle placement: Yes Ultrasound used to observe medication spread: Yes Injectate: 0.5% Ropivacaine (see comment for volume) (25ml + 4mg Dexamethasone) Blood Aspirated: No Pain Paresthesia on Injection Noted: No Resistance on Injection: Normal Image Stored and Saved: Yes Events: Other (see comment) (5 ml of Ropivacaine 0.5% used to block the left saphenous nerve at the ankle ( steril teck ))
[2022-09-12] MEDS ORDERED: ROCURONIUM 10 MG/ML (5 ML VIAL) IV ONE (14:21)
[2022-09-12] MEDS ORDERED: fentaNYL (PF) 50 MCG/ML 2 ML AMP ONE (14:21)
[2022-09-12] MEDS ORDERED: HYDROmorphone (PF) 1 MG/ML ONE (14:21)
[2022-09-12] MEDS ORDERED: GLYCOPYRROLATE 0.2 MG/ML 2 ML VIAL ONE (14:21)
[2022-09-12] MEDS ORDERED: NEOSTIGMINE 1 MG/ML 10 ML VIAL ONE (14:21)
[2022-09-12] MEDS ORDERED: PHENYLEPHRINE-0.9% NACL SYG 1,000 MCG/10 ML SYRINGE ONE (14:21)
[2022-09-12] MEDS ORDERED: MIDAZOLAM 2 MG/2 ML VIAL ONE (14:21)
[2022-09-12] MEDS ORDERED: LIDOCAINE 2% INJ 20 MG/ML (2 ML VIAL) ONE (14:21)
[2022-09-12] MEDS ORDERED: ROPIVACAINE 5 MG/ML 30 ML VIAL ONE (14:21)
[2022-09-12] MEDS ORDERED: DEXAMETHASONE SOD PHOSPHATE 4 MG/ML 1 ML VIAL ONE (14:21)
[2022-09-12] MEDS ORDERED: SUCCINYLCHOLINE CHLORIDE 200 MG/10 ML VIAL IV ONE (14:21)
[2022-09-12] MEDS ORDERED: PROPOFOL 10 MG/ML 20 ML VIAL IV ONE (14:21)
[2022-09-12] MEDS: LACTATED RINGERS 1,000 ML IV ONE (15:37)
[2022-09-12 16:04] VITALS: RESP 16; TEMP 97.2
[2022-09-12 16:09] LABS: Glucose,Whole Blood 216 mg/dL (70-110)
--- NOTE | 2022-09-12 16:13 | P.OP ---
Date of Procedure: 09/12/22 Preoperative Diagnosis: 1. Achilles tendinosis left ankle 2. Gastroc equinus left Postoperative Diagnosis: 1. Same 2. Same Procedure(s) Performed: 1. Secondary repair left Achilles tendon 2. Gastroc recession left Implants: Arthrex [id number] allograft Anesthesia: AISHA Surgeon: Obed Sanches Estimated Blood Loss (ml): 0 Pathology: none sent Condition: stable Disposition: PACU Description of Procedure: Prior to the patient being brought to the operative room, anesthesia administered a nerve block on the left lower extremity. The patient was brought into the operating room at which point a timeout was taken to confirm correct patient identifiers, correct surgery, and correct procedure. Once all staff in the room were in agreement with the timeout, the patient was induced and placed under general anesthesia in the supine position on table. Then the patient was replaced on the operating room table in the prone position. Appropriate padding was placed under bony prominences and in the thoracic area. When anesthesia was satisfied with position of the patient a well-padded tourniquet was placed on the left thigh and the left leg was then prepped and draped usual manner. The leg was exsanguinated and the tourniquet inflated to 250 mmHg. Tension was directed over the midline of the calf. A linear incision was made distal to the gastroc muscle belly. It was deepened down to the saphenous tissue careful to identify, avoid, and retract any neurovascular structures and cauterize any bleeding vessels. Blunt dissection was then continued down to the deep fascia overlying the gastroc aponeurosis. The fascia was incised and retra cted medially and laterally. Blunt dissection was then used to release aponeurosis from the overlying fascia. Scalpel was used to create a transverse incision through the aponeurosis from medial to lateral. Once completed the ankle was dorsiflexed and a visible gap appeared at the area of resection indicating a full release. The wound was irrigated thoroughly with antibiotic saline. Subcu closure was done with 4-0 Monocryl. Skin closure was done with 3-0 Stratafin in a running subarticular manner Then attention was directed over the Achilles tendon. There was a thickened area of tendon that was the source of the patient's pain. This area of tendon was located in the watershed area. An incision was made along the medial aspect of the tendon and was deepened down to the subcutaneous tissue careful to identify, avoid, and retract any neurovascular structures and cauterize any bleeding vessels. The incision was carried down to level of the subcutaneous tissue which was then dissected off the peritenon from the tendon so that the entirety of the tendon was exposed. 2 semi-elliptical converging incisions were made through the Achilles tendon and within the central aspect. It was done full-thickness through the tendon and the interposing piece of tendon was removed. There was an area of abnormal tissue in the central aspect of the body of the tendon that was fully degraded with old hemorrhagic material within it. Once full debridement of the tendon was completed, the wound is irrigated with antibiotic saline. Using 1.3 mm suture tape, a [id number] repair of the te ndon was performed. Then an Arthrex [id number] allograft was placed over the repair site. Utilizing 4-0 Monocryl, the graft was sutured into the tendon over the repair site. The wound was irrigated thoroughly with antibiotic saline. Subcu closure was done with 4-0 Monocryl. Skin closure was done with 3-0 Stratafix in a running subarticular manner. Dermal glue was applied over the incisions and allowed to dry. Then Steri-Strips are placed across incision. An Arthrex jumpstart dressing was placed over both incisions. A bulky dry dressing was applied to the left leg. The tourniquet was released and capillary refill return to all digits on the left foot. The patient was then placed in a well- padded, well molded plaster posterior mold/sugar tong splint. Ankle was held in neutral position as the splint dried. The patient was then rolled onto the transfer table back into the supine position at which point anesthesia was reversed and she was taken recovery with vital signs stable.
[2022-09-12] MEDS ORDERED: SODIUM CHLORIDE 0.9% 1,000 ML IV ONE (17:12)
[2022-09-12 17:41] VITALS: BP 130/87; PULSE 97
== END 2022-09-12 18:05 | disposition home or self-care (01) ==
LOC: OR 12:28
PROVIDERS: ATTEND Podiatrist
DX: M62.462 Contracture of muscle, left lower leg (principal); M76.62 Achilles tendinitis, left leg; E78.5 Hyperlipidemia, unspecified; G47.33 Obstructive sleep apnea (adult) (pediatric); F32.A Depression, unspecified; M79.7 Fibromyalgia; E11.9 Type 2 diabetes mellitus without complications; I10 Essential (primary) hypertension; Z88.5 Allergy status to narcotic agent; Z79.84 Long term (current) use of oral hypoglycemic drugs; Z79.4 Long term (current) use of insulin; Z79.899 Other long term (current) drug therapy
CPT/HCPCS: 27687; 27654; 64445; 88304; C1713; J2250; J0330; J1100; J2710; J0690; J3010; J1170; J2795; J2370; J2704; J1790; J2001

== ENCOUNTER → 2023-06-17 | Outpatient (CLI) | payer OTHER ==
[2023-06-17 11:05] VITALS: BP 149/83; PULSE 77; RESP 17; TEMP 97.8
--- NOTE | 2023-06-17 11:28 | P.HPOB ---
History of Present Illness H&P Date: 06/17/23 Chief Complaint: The patient is here for her routine gynecologic exam and ma mmogram. This is a 58-year-old 032 with an LMP of 2004. The patient states she has done well with the clobetasol ointment which she has used for lichen sclerosus of the vulva. She states she uses this infrequently for vulvar itching. She is otherwise without gynecologic complaints and denies any postmenopausal bleeding. Review of Systems She is gained about 17 pounds over the past year. Respiratory: She occasionally gets slightly short of breath and attributes this to being overweight. She denies cardiac or GI problems. Musculoskeletal: She had left foot surgery on her Achilles tendon and continues to have issues with this. Past Medical History Past Medical History: Diabetes Mellitus, Hyperlipidemia, Hypertension Additional Past Medical History / Comment(s): Type II diabetes. 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 Lichen sclerosus of the vulva. History of Any Multi-Drug Resistant Organisms: None Reported Past Surgical History: Tubal Ligation Additional Past Surgical History / Comment(s): SINUS SURGERY. VTPx3. Colonoscopy 2016(2nd,next 10yrs). Left Achilles tendon surgery. Past Anesthesia/Blood Transfusion Reactions: Postoperative Nausea & Vomiting (PONV) Past Psychological History: Depression Smoking Status: Former smoker Past Alcohol Use History: Occasional (0-3 drinks per week.) Additional Past Alcohol Use History / Comment(s): QUIT SMOKING IN 2005, SMOKED FOR 23 YRS. 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 - Past Family History Mother Family Medical History: Diabetes Mellitus Additional Family Medical History / Comment(s): Grandfather also had diabetes. Brother(s) Family Medical History: Diabetes Mellitus Medications and Allergies Home Medications Medication Instructions Recorded Confirmed Type Atorvastatin [Lipitor] 20 mg PO HS 09/13/15 06/17/23 History Cholecalciferol [Vitamin D3] 1,000 unit PO DAILY 09/13/15 06/17/23 History metFORMIN HCL [Glucophage] 1,000 mg PO DAILY 09/13/15 06/17/23 History Clobetasol Propionate [Temovate 1 applic TOPICAL DAILY PRN 11/17/18 06/17/23 History 0.05% Cream] Insulin Glargine [Lantus] 40 unit SQ HS 11/17/18 06/17/23 History Losartan Potassium [Cozaar] 25 mg PO HS 11/17/18 06/17/23 History ARIPiprazole [Abilify] 10 mg PO HS 02/12/22 06/17/23 History Allergies Allergy/AdvReac Type Severity Reaction Status Date / Time bupropion HCl [From Zyban] Allergy Rash/Hives Verified 06/17/23 10:43 codeine Allergy Nausea & Verified 06/17/23 10:43 Vomiting tramadol HCl [From Ultram] Allergy Nausea & Verified 06/17/23 10:43 Vomiting Exam Vital Signs Temp Pulse Resp BP Pulse Ox 06/17/23 10:46 97.8 F 77 17 149/83 96 Intake and Output 06/16/23 06/17/23 06/17/23 22:59 06:59 14:59 Other: Weight 93.894 kg Height 5 feet 3 inches, weight 207 pounds, BMI 36.7. This is a well-developed well-nourished white female who is alert and oriented times 3 in no acute distress. HEENT: Within normal limits. NECK: Supple without mass or thyromegaly. CHEST AND LUNGS: Clear to auscultation. HEART: Regular rate and rhythm. BREASTS: Are without mass or discharge. AXILLARY EXAM: Negative for adenopathy. BACK: Negative for CVA tenderness. ABDOMEN: Soft, nontender, without palpable masses. PELVIC EXAM: External genitalia reveals mild generalized pallor with mild atrophy. The pallor extends to the perineum and to the perianal areas. In these areas, there is no ulceration or excoriation as well as no focal lesions. Cervix and vagina appear normal with mild atrophy. There is no unusual discharge. There is no evidence of prolapse. The uterus is midposition, nongravid size and nontender. There are no palpable adnexal masses or tenderness. RECTAL EXAM: Rectovaginal exam is negative for mass or tenderness and is negative for occult blood. EXTREMITIES: Nontender. IMPRESSION: 1. 58-year-old menopausal female with stable lichen sclerosis of the vulva controlled with clobetasol ointment. PLAN: 1. Pap smear cotest was performed. 2. Self breast awareness was discussed with the patient. We have also discussed symptoms associated with inflammatory breast cancer. 3. Screening mammogram will be done today. 4. Osteoporosis prevention was discussed. I have stressed the importance of adequate calcium, vitamin D and regular exercise. Recommended amounts of calcium and vitamin D were also discussed. I recommended doing a bone density test at the age of 59. We will plan on doing a bone density test next year at her annual examination. 5. She will continue to use clobetasol ointment as needed. She states she does not need a new prescription at this time, but will call if she needs a new prescription. 6. She was advised to return in one year for her annual well woman exam and as needed.
--- NOTE | 2023-06-18 11:28 | MM ---
Reason for Exam: Screening (asymptomatic). Last mammogram was performed 1 year(s) and 7 month(s) ago. Patient History: Menarche at age 11. First Full-Term at age 19. Postmenopausal. Hormonal Contraceptives for 2 months. Risk Values: Loida 5 year model risk: 1.2%. NCI Lifetime model risk: 6.7%. Prior Study Comparison: 11/17/2018 Bilateral Screening Mammogram, [facility]. 09/11/2020 Bilateral Screening Mammogram, [facility]. 10/29/2021 Bilateral Screening Mammogram, [facility]. Tissue Density: The breast tissue is heterogeneously dense. This may lower the sensitivity of mammography. Findings: Analyzed By CAD. There is no suspicious group of microcalcifications or new suspicious mass in either breast. Overall Assessment: Negative, BI-RAD 1 Management: Screening Mammogram of both breasts in 1 year. . Patient should continue monthly self-breast exams. A clinical breast exam by your physician is recommended on an annual basis. This exam should not preclude additional follow-up of suspicious palpable abnormalities. Note on Loida scores and lifetime risk: 1. A Loida score greater than 3% is considered moderate risk. If this is the case, consider specialist referral to assess eligibility for a risk reducing agent. 2. If overall lifetime risk for the development of breast cancer is 20% or higher, the patient may qualify for future screening with alternating mammogram and breast MRI. Electronically signed and approved by: Luis A Alvarez M.D. Radiologis
== END ==
LOC: WWCWWP 10:37
PROVIDERS: ATTEND Obstetrics & Gynecology
DX: Z12.31 Encounter for screening mammogram for malignant neoplasm of breast (principal); E11.9 Type 2 diabetes mellitus without complications; E78.5 Hyperlipidemia, unspecified; I10 Essential (primary) hypertension; L90.0 Lichen sclerosus et atrophicus; Z79.84 Long term (current) use of oral hypoglycemic drugs; Z87.891 Personal history of nicotine dependence; Z88.8 Allergy status to other drugs, medicaments and biological substances; Z79.4 Long term (current) use of insulin; Z78.0 Asymptomatic menopausal state; Z88.5 Allergy status to narcotic agent
CPT/HCPCS: 77067